=== PATIENT | female | born 1945 | race Two or more races ===

== ENCOUNTER → 2019-04-27 | Outpatient (CLI) | payer OTHER ==
[~2019-04-27] MED LIST: CARDURA8 MG PO; LOSARTAN-HCTZ1 EAC1 PO; NABUMETONE500 MG PO; NORVASC10 MG; PERCOCET 5/3251 TAB PO; PRILOSEC20 MG PO; VASOTEC20 MG
== END | disposition home or self-care (01) ==
LOC: TOM 08:37
DX: M12.89 Other specific arthropathies, not elsewhere classified, multiple sites (principal)

== ENCOUNTER 2019-05-04 07:35 | Outpatient (CLI) | payer OTHER | END 2019-05-04 07:48 | disposition home or self-care (01) | LOC: NUCLEAR 07:35 | DX: I87.2 Venous insufficiency (chronic) (peripheral) (principal) ==

== ENCOUNTER 2021-02-14 09:16 | Emergency (ER) | payer OTHER ==
[~2021-02-14] VITALS: Ht 157.5 cm; Wt 80.7 kg
[2021-02-14] MEDS ORDERED: INTESTINEX680 M1 PO (17:16)
[2021-02-14] MEDS ORDERED: PEPCID AC20 MG PO (17:16)
[2021-02-14] MEDS ORDERED: CIPRO500 MG PO (17:16)
[2021-02-14] MEDS ORDERED: FLAGYL500MG PO (17:16)
[2021-02-14] MEDS ORDERED: LEVSIN/SL0.125 MG PO (17:16)
[2021-02-14] MEDS ORDERED: KETO10TA2 PO (17:16)
== END 2021-02-14 19:18 | disposition home or self-care (01) ==
LOC: ER 09:16
DX: K57.92 Diverticulitis of intestine, part unspecified, without perforation or abscess without bleeding (principal)

== ENCOUNTER 2021-02-21 09:39 | Emergency (ER) | payer OTHER ==
[~2021-02-21] VITALS: Ht 157.5 cm; Wt 79.8 kg
[~2021-02-21 09:39] MED LIST changes: +CIPRO500 MG PO; +FLAGYL500MG PO; +INTESTINEX680 M1 PO; +KETO10TA2 PO; +LEVSIN/SL0.125 MG PO; +PEPCID AC20 MG PO
[2021-02-21] MEDS ORDERED: PREVACID30 MG (10:03)
[2021-02-21] MEDS ORDERED: FLUCONAZOLE150 MG PO (12:22)
[2021-02-21] MEDS ORDERED: NYSTATIN-TRIAMC15 GM TOP (12:22)
== END 2021-02-21 13:27 | disposition home or self-care (01) ==
LOC: ER 09:39
DX: B37.3 Candidiasis of vulva and vagina (principal); L22 Diaper dermatitis

== ENCOUNTER 2021-06-01 06:18 | Day surgery (SDC) | payer OTHER ==
[~2021-06-01 06:18] MED LIST changes: +FLUCONAZOLE150 MG PO; +NYSTATIN-TRIAMC15 GM TOP; +PREVACID30 MG
== END 2021-06-01 13:45 | disposition home or self-care (01) ==
LOC: AMB-ENDOS 06:18
PROVIDERS: ATTEND Surgery
DX: K57.32 Diverticulitis of large intestine without perforation or abscess without bleeding (principal); Z20.822 Contact with and (suspected) exposure to COVID-19

== ENCOUNTER → 2022-08-16 | Outpatient (CLI) | payer OTHER | END | disposition home or self-care (01) | LOC: RX STUDY 08:28 | PROVIDERS: ATTEND Surgery | DX: K57.32 Diverticulitis of large intestine without perforation or abscess without bleeding (principal) ==

== ENCOUNTER 2024-02-12 09:27 | Inpatient (IN) | payer OTHER ==
[~2024-02-12] VITALS: Ht 157.5 cm; Wt 56.7 kg
[2024-02-12 09:49] LABS: URINE APPEARANCE Clear; URINE BILIRRUBIN Negative (NEGATIVE); URINE BLOOD Negative; URINE COLOR Yellow; URINE GLUCOSE Negative (NEGATIVE); URINE LEUKOCYTE Small; URINE NITRATE Negative; URINE PROTEIN Negative (NEGATIVE); URINE UROBILINOGEN 0.2 E.U./dl
[2024-02-12 09:51] LABS: HEMATOCRIT 41.5 % (36.0-45.00); HEMOGLOBIN 13.9 g/dL (12.0-15.00); MEAN CELL VOLUME 91.2 fL (80.00-100.00); MEAN CORPUSCULAR HEMOGLOBIN 30.6 pg (27.00-32.0); MEAN CORPUSCULAR HGB CONC 33.6 g/dl (32.0-36.0); PLATELET COUNT 219 K/uL (150-450); RED BLOOD COUNT 4.55 M/uL (4.00-6.00); RED CELL DISTRIBUTION WIDTH 13.9 % (11.5-14.5)
[2024-02-12 09:54] LABS: URINE BACTERIA 32.7 uL (0.0-1933); URINE EPITHELIAL CELLS 10.3 uL (0.0-38.8); URINE RBC 2.4 uL (0.0-20.8); URINE WBC 9.1 uL (0.0-23.2)
[2024-02-12 10:15] LABS: PARTIAL THROMBOPLASTIN TIME 29.2 SECONDS (22.0-34.0); PROTHROMBIN TIME 10.5 SECONDS (9.0-11.5)
[2024-02-12 11:25] LABS: ALBUMIN 4.1 gm/dL (3.4-5.0); BILIRUBIN TOTAL 0.58 mg/dL (0.3-1.2); CALCIUM 9.5 mg/dL (8.5-10.1); CREATININE SERUM 0.72 mg/dL (0.55-1.02); GFR 77.94; GLOBULINA 3.5 G/DL (2.4-3.5); POTASSIUM 3.81 mEq/L (3.5-5.1); TOTAL PROTEIN 7.6 gm/dL (6.4-8.2)
[2024-02-19] MEDS ORDERED: CEFTRIAXONE SODIUM 2,000 MG VIAL ONE (07:54)
[2024-02-19] MEDS ORDERED: METRONIDAZOLE/SODIUM CHLORIDE 500 MG/100 ML PIGGYBACK IV ONE (07:54)
[2024-02-19] MEDS ORDERED: SUGAMMADEX SODIUM 200 MG/2 ML VIAL IV ONE ×2 (11:41→11:45)
[2024-02-19] MEDS ORDERED: DEXTROSE 50 % IN WATER 0.5 G/ML DISP.SYRIN IV PRN (11:45)
[2024-02-19] MEDS ORDERED: OxyCODONE HCL 5 MG TABLET (ROXICODONE) PO PRN (11:45)
[2024-02-19] MEDS ORDERED: MORPHINE SULFATE 4 MG/ML CARTRIDGE IV PRN (11:45)
[2024-02-19] MEDS ORDERED: RINGERS SOLUTION,LACTATED 1,000 ML IV SCH (11:45)
[2024-02-19] MEDS ORDERED: ONDANSETRON HCL 2 MG/ML VIAL IV PRN (11:45)
[2024-02-19] MEDS ORDERED: ENALAPRILAT DIHYDRATE 1.25 MG/ML VIAL IV PRN (12:00)
[2024-02-19] MEDS ORDERED: ONDANSETRON HCL 2 MG/ML VIAL ONE ×2 (12:33→16:43)
[2024-02-19] MEDS ORDERED: ONDANSETRON HCL 2 MG/ML VIAL IV ONE (12:35)
[2024-02-19] MEDS ORDERED: MORPHINE SULFATE 4 MG/ML VIAL IV ONE (12:40)
[2024-02-19 13:48] LABS: HEMATOCRIT 41.7 % (36.0-45.00); HEMOGLOBIN 14.1 g/dL (12.0-15.00); MEAN CORPUSCULAR HEMOGLOBIN 30.8 pg (27.00-32.0); MEAN CORPUSCULAR HGB CONC 33.8 g/dl (32.0-36.0); PLATELET COUNT 172 K/uL (150-450); RED BLOOD COUNT 4.58 M/uL (4.00-6.00); RED CELL DISTRIBUTION WIDTH 14.7 % (11.5-14.5)
[2024-02-19] MEDS ORDERED: ENALAPRILAT DIHYDRATE 1.25 MG/ML VIAL IV ONE (14:17)
[2024-02-19 14:28] LABS: ALBUMIN 3.5 gm/dL (3.4-5.0); CALCIUM 8.7 mg/dL (8.5-10.1); CREATININE SERUM 0.56 mg/dL (0.55-1.02); GFR 104.16; MAGNESIUM 1.7 mg/dL (1.8-2.4); PHOSPHOROUS 3.6 mg/dL (2.5-4.9); POTASSIUM 3.16 mEq/L (3.5-5.1)
[2024-02-19] MEDS ORDERED: ACETAMINOPHEN 500 MG GEL..CAP PO ONE (16:28)
[2024-02-19] MEDS ORDERED: HYOSCYAMINE SULFATE 0.125 MG TAB.SUBL ONE ×2 (16:28→16:33)
[2024-02-19] MEDS ORDERED: GABAPENTIN 300 MG CAPSULE PO ONE ×2 (16:28→16:34)
[2024-02-19] MEDS ORDERED: POLYETHYLENE GLYCOL 3350 17 GM BLIST.PACK PO SCH (17:00)
[2024-02-19] MEDS ORDERED: GABAPENTIN 300 MG CAPSULE PO SCH (17:00)
[2024-02-19] MEDS ORDERED: HYOSCYAMINE SULFATE 0.125 MG TAB.SUBL SL SCH (17:00)
[2024-02-19] MEDS ORDERED: POTASSIUM CHLORIDE 20MEQ/100ML H2O PB IV NR (19:15)
[2024-02-19] MEDS ORDERED: ACETAMINOPHEN 500 MG GEL..CAP PO SCH (20:00)
[2024-02-19] MEDS ORDERED: FAMOTIDINE/PF 20 MG/2 ML VIAL IV PUSH SCH (21:00)
[2024-02-19] MEDS ORDERED: SIMETHICONE 125 MG CAPSULE PO SCH (21:00)
[2024-02-20] MEDS ORDERED: LOSARTAN/HYDROCHLOROTHIAZIDE 1 UDTAB TABLET PO SCH (09:00)
[2024-02-20] MEDS ORDERED: METOPROLOL SUCCINATE 25 MG TAB.SR.24H PO SCH (09:00)
[2024-02-20] MEDS ORDERED: POTASSIUM CHLORIDE IN WATER 100 ML IV NR ×2 (13:30→17:00)
[2024-02-20] MEDS ORDERED: MAGNESIUM SULFATE IN WATER 50 ML IV NR (13:30)
[2024-02-20] MEDS ORDERED: ROSUVASTATIN 5 MG PO SCH (17:00)
[2024-02-20] MEDS ORDERED: ENOXAPARIN SODIUM 40 MG/0.4 ML SYRINGE SUBCUTANEO SCH (17:00)
[2024-02-20] MEDS ORDERED: POTASSIUM CHLORIDE IN WATER 40 MEQ/100 ML PIGGYBAG IV ONE (23:33)
[2024-02-21 06:26] LABS: HEMATOCRIT 37.3 % (36.0-45.00); HEMOGLOBIN 12.7 g/dL (12.0-15.00); MEAN CELL VOLUME 91.7 fL (80.00-100.00); MEAN CORPUSCULAR HEMOGLOBIN 31.2 pg (27.00-32.0); PLATELET COUNT 145 K/uL (150-450); RED BLOOD COUNT 4.07 M/uL (4.00-6.00); RED CELL DISTRIBUTION WIDTH 14.3 % (11.5-14.5)
[2024-02-21 07:20] LABS: CALCIUM 8.8 mg/dL (8.5-10.1); CREATININE SERUM 0.5 mg/dL (0.55-1.02); GFR 118.71; MAGNESIUM 1.9 mg/dL (1.8-2.4); PHOSPHOROUS 2.7 mg/dL (2.5-4.9); POTASSIUM 4.59 mEq/L (3.5-5.1)
[2024-02-21] MEDS ORDERED: ENOXAPARIN SODIUM 40 MG/0.4 ML SYRINGE SUBCUTANEO SCH (09:00)
== END 2024-02-22 14:11 | disposition home or self-care (01) | DRG 330 ==
LOC: O/R 02-19 05:50 → SURH 02-19 05:50 → O/R 02-19 14:28 → SURH 02-19 14:28
PROVIDERS: Internal Medicine Geriatric Medicine; ADMIT Surgery; ATTEND Surgery
PROC: 0DBP4ZZ Excision of Rectum, Percutaneous Endoscopic Approach (ICD-10-PCS; 2024-02-19)
PROC: 0DNW4ZZ Release Peritoneum, Percutaneous Endoscopic Approach (ICD-10-PCS; 2024-02-19)
PROC: 0DJD8ZZ Inspection of Lower Intestinal Tract, Via Natural or Artificial Opening Endoscopic (ICD-10-PCS; 2024-02-19)
PROC: 4A1BXSH Monitoring of Gastrointestinal Vascular Perfusion using Indocyanine Green Dye, External Approach (ICD-10-PCS; 2024-02-19)
PROC: 0DTN4ZZ Resection of Sigmoid Colon, Percutaneous Endoscopic Approach (ICD-10-PCS; principal; 2024-02-19 12:30)
DX: K57.30 Diverticulosis of large intestine without perforation or abscess without bleeding (principal); K56.50 Intestinal adhesions [bands], unspecified as to partial versus complete obstruction; K59.02 Outlet dysfunction constipation

== ENCOUNTER 2024-04-06 08:57 | Outpatient (CLI) | payer OTHER | END 2024-04-06 09:00 | disposition home or self-care (01) | LOC: TOM 08:57 | PROVIDERS: ATTEND Internal Medicine Cardiovascular Disease | DX: R41.3 Other amnesia (principal); M12.9 Arthropathy, unspecified | CPT/HCPCS: 70551 ==